=== PATIENT | female | born 1960 | race Two or more races ===

== ENCOUNTER 2023-07-05 05:30 | Day surgery (SDC) | payer OTHER ==
[2023-07-02 08:16] LABS: URINE APPEARANCE Clear; URINE BILIRRUBIN Negative (NEGATIVE); URINE BLOOD Negative; URINE COLOR Yellow; URINE GLUCOSE Negative (NEGATIVE); URINE LEUKOCYTE Negative; URINE NITRATE Negative; URINE PROTEIN Negative (NEGATIVE); URINE UROBILINOGEN 0.2 E.U./dl
[2023-07-02 08:17] LABS: URINE BACTERIA 76.7 uL (0.0-1933); URINE EPITHELIAL CELLS 7.8 uL (0.0-38.8); URINE RBC 4.5 uL (0.0-20.8); URINE WBC 22.9 uL (0.0-23.2)
[2023-07-02 09:00] LABS: HEMATOCRIT 41.7 % (36.0-45.00); HEMOGLOBIN 14.2 g/dL (12.0-15.00); MEAN CELL VOLUME 91.3 fL (80.00-100.00); PLATELET COUNT 305 K/uL (150-450); RED BLOOD COUNT 4.57 M/uL (4.00-6.00); RED CELL DISTRIBUTION WIDTH 13.6 % (11.5-14.5)
[2023-07-02 09:01] LABS: ALBUMIN 3.7 gm/dL (3.4-5.0); BILIRUBIN TOTAL 0.45 mg/dL (0.3-1.2); CREATININE SERUM 0.63 mg/dL (0.55-1.02); GFR 95.75; GLOBULINA 3.7 G/DL (2.4-3.5); POTASSIUM 3.58 mEq/L (3.5-5.1); TOTAL PROTEIN 7.4 gm/dL (6.4-8.2)
[2023-07-02 09:02] LABS: PARTIAL THROMBOPLASTIN TIME 28.1 SECONDS (22.0-34.0); PROTHROMBIN TIME 10.5 SECONDS (9.0-11.5)
[~2023-07-05] VITALS: Ht 170.2 cm; Wt 103.0 kg
[~2023-07-05 05:30] MED LIST: ALLEGRA ALLERG180 MG PO; CLONAZEPAM0.5 MG PO; CRESTOR5 MG PO; CYMBALTA30 MG PO; HORIZANT300 MG PO; HYZAAR 100-251 EACH PO; MELATONIN5 M1 PO; SINGULAIR10 MG PO; SYMBI IH; SYNTHROID50 MCG PO
[2023-07-05] MEDS ORDERED: MORGIDOX100 MG PO (08:42)
== END 2023-07-05 12:45 | disposition home or self-care (01) ==
LOC: CIR.AMB 05:30
PROVIDERS: ATTEND Obstetrics & Gynecology
DX: N84.0 Polyp of corpus uteri (principal); N95.0 Postmenopausal bleeding; N93.8 Other specified abnormal uterine and vaginal bleeding; Z20.822 Contact with and (suspected) exposure to COVID-19; Z88.6 Allergy status to analgesic agent; E03.9 Hypothyroidism, unspecified; I10 Essential (primary) hypertension; E11.9 Type 2 diabetes mellitus without complications

== ENCOUNTER 2023-11-15 07:15 | Inpatient (IN) | payer OTHER ==
[~2023-11-15] VITALS: Ht 170.2 cm; Wt 103.0 kg
[~2023-11-15 07:15] MED LIST changes: +MORGIDOX100 MG PO
[2023-11-15 08:40] LABS: HEMOGLOBIN 13.9 g/dL (12.0-15.00); MEAN CELL VOLUME 92.5 fL (80.00-100.00); MEAN CORPUSCULAR HEMOGLOBIN 32.2 pg (27.00-32.0); MEAN CORPUSCULAR HGB CONC 34.8 g/dl (32.0-36.0); PLATELET COUNT 338 K/uL (150-450); RED BLOOD COUNT 4.33 M/uL (4.00-6.00); RED CELL DISTRIBUTION WIDTH 12.9 % (11.5-14.5)
[2023-11-15 08:40] LABS: URINE APPEARANCE Clear; URINE BILIRRUBIN Negative (NEGATIVE); URINE BLOOD Negative; URINE COLOR Yellow; URINE GLUCOSE Negative (NEGATIVE); URINE LEUKOCYTE Negative; URINE NITRATE Negative; URINE PROTEIN Negative (NEGATIVE)
[2023-11-15 08:46] LABS: URINE EPITHELIAL CELLS 2.9 uL (0.0-38.8); URINE RBC 3.3 uL (0.0-20.8); URINE WBC 3.9 uL (0.0-23.2)
[2023-11-15 09:05] LABS: ALBUMIN 3.9 gm/dL (3.4-5.0); BILIRUBIN TOTAL 0.66 mg/dL (0.3-1.2); CALCIUM 9.4 mg/dL (8.5-10.1); CREATININE SERUM 0.6 mg/dL (0.55-1.02); GFR 100.97; GLOBULINA 3.6 G/DL (2.4-3.5); POTASSIUM 3.54 mEq/L (3.5-5.1); TOTAL PROTEIN 7.5 gm/dL (6.4-8.2)
[2023-11-15 09:06] LABS: PARTIAL THROMBOPLASTIN TIME 29.6 SECONDS (22.0-34.0); PROTHROMBIN TIME 10.5 SECONDS (9.0-11.5)
[2023-11-22] MEDS ORDERED: CEFOXITIN SODIUM 2,000 MG VIAL IV ONE ×2 (09:04→11:30)
[2023-11-22] MEDS ORDERED: METRONIDAZOLE/SODIUM CHLORIDE 500 MG/100 ML PIGGYBACK IV ONE ×2 (09:04→11:30)
[2023-11-22] MEDS ORDERED: POVIDONE-IODINE 118 ML BOTT TOP ONE (09:36)
[2023-11-22] MEDS ORDERED: BUDESONIDE-FO10.2 G1 (10:00)
[2023-11-22] MEDS ORDERED: FAMOTIDINE40 MG (10:00)
[2023-11-22] MEDS ORDERED: GABAPENTIN300 M2 (10:00)
[2023-11-22] MEDS ORDERED: CLOTRIMAZOLE-BE15 G1 (10:00)
[2023-11-22] MEDS ORDERED: hydrALAZINE HCL 20 MG VIAL ONE (11:01)
[2023-11-22] MEDS ORDERED: VISTASEAL DUAL APPICATOR 1 EACH APPL TOP ONE ×2 (11:41→12:00)
[2023-11-22] MEDS ORDERED: THROMBIN,HU/FIBRINOGEN/CALCIUM 10 ML SYRINGE TOP ONE (11:45)
[2023-11-22] MEDS ORDERED: hydrALAZINE HCL 20 MG VIAL IV ONE (12:00)
[2023-11-22] MEDS ORDERED: FAMOTIDINE/PF 20 MG/2 ML VIAL IV SCH (12:36)
[2023-11-22] MEDS ORDERED: RINGERS SOLUTION,LACTATED 1,000 ML IV SCH (12:45)
[2023-11-22] MEDS ORDERED: MEPERIDINE HCL/PF 50 MG/ML VIAL IM PRN (12:45)
[2023-11-22] MEDS ORDERED: PROMETHAZINE HCL 25 MG/ML AMPUL IM PRN (12:45)
[2023-11-22 14:46] LABS: ABG PH 7.442 (7.35-7.45); ABG PO2 260.4 mmHg (80-100); ABG pCO2 35.2 mmHg (35-45)
[2023-11-22 14:47] LABS: BASE EXCESS -0.1 mmol/l; BICARBONATE 23.4 mmol/l (23-25); SaO2 99.9 %; Tco2 24.5 mmol/l; allen test SATISFACTORY; puncture site RADIAL RIGHT
[2023-11-22 14:48] LABS: o2 40 %
[2023-11-22] MEDS ORDERED: MONTELUKAST SODIUM 10 MG TABLET PO SCH (17:00)
[2023-11-22] MEDS ORDERED: SIMETHICONE 125 MG CAPSULE PO ONE (17:01)
[2023-11-22] MEDS ORDERED: SIMETHICONE 125 MG CAPSULE PO SCH (18:00)
[2023-11-22 19:02] LABS: HEMATOCRIT 41.2 % (36.0-45.00); MEAN CELL VOLUME 91.4 fL (80.00-100.00); MEAN CORPUSCULAR HGB CONC 33.9 g/dl (32.0-36.0); PLATELET COUNT 326 K/uL (150-450); RED BLOOD COUNT 4.51 M/uL (4.00-6.00); RED CELL DISTRIBUTION WIDTH 13.5 % (11.5-14.5)
[2023-11-22] MEDS ORDERED: BENZONATATE 100 MG CAPSULE PO SCH (21:00)
[2023-11-22] MEDS ORDERED: LEVALBUTEROL HCL 0.63 MG/3 ML SOLUTION IH SCH (21:00)
[2023-11-22] MEDS ORDERED: MENTHOL/CETYLPYRD CL 1 LOZENGE MM SCH (21:00)
[2023-11-22] MEDS ORDERED: CLONAZEPAM 0.5 MG TABLET PO SCH (21:00)
[2023-11-23] MEDS ORDERED: LEVOTHYROXINE SODIUM 50 MCG TABLET PO SCH (06:00)
[2023-11-23] MEDS ORDERED: LOSARTAN/HYDROCHLOROTHIAZIDE 1 UDTAB TABLET PO SCH (09:00)
[2023-11-23] MEDS ORDERED: Duloxetine HCl 30 MG CAPSULE.DR PO SCH (09:00)
[2023-11-23] MEDS ORDERED: GABAPENTIN 300 MG CAPSULE PO SCH (09:00)
[2023-11-23] MEDS ORDERED: FAMOtidine 20 MG TABLET PO SCH (09:13)
[2023-11-23] MEDS ORDERED: ACETAMINOPHEN WITH CODEINE 1 UDTAB TABLET PO PRN (09:15)
[2023-11-23] MEDS ORDERED: ACETAMINOPHEN-1 EAC2 PO (09:25)
[2023-11-23] MEDS ORDERED: PEPCID AC20 MG PO (09:26)
[2023-11-23] MEDS ORDERED: MELATONIN 5 MG TABLET PO SCH (21:00)
== END 2023-11-23 10:04 | disposition home or self-care (01) | DRG 743 ==
LOC: O/R 11-22 05:05 → OB/GYN 11-22 05:05 → SURG 11-22 07:00 → OB/GYN 11-22 13:17
PROVIDERS: Anesthesiology; Obstetrics & Gynecology Gynecologic Oncology; ADMIT Obstetrics & Gynecology; ATTEND Obstetrics & Gynecology
PROC: 0UT2FZZ Resection of Bilateral Ovaries, Via Natural or Artificial Opening With Percutaneous Endoscopic Assistance (ICD-10-PCS; 2023-11-22)
PROC: 0TJB8ZZ Inspection of Bladder, Via Natural or Artificial Opening Endoscopic (ICD-10-PCS; 2023-11-22)
PROC: 07BC4ZZ Excision of Pelvis Lymphatic, Percutaneous Endoscopic Approach (ICD-10-PCS; 2023-11-22)
PROC: 0UT9FZZ Resection of Uterus, Via Natural or Artificial Opening With Percutaneous Endoscopic Assistance (ICD-10-PCS; principal; 2023-11-22 07:00)
PROC: 0UT7FZZ Resection of Bilateral Fallopian Tubes, Via Natural or Artificial Opening With Percutaneous Endoscopic Assistance (ICD-10-PCS; 2023-11-22 07:00)
DX: D25.1 Intramural leiomyoma of uterus (principal); N80.03 Adenomyosis of the uterus; N95.0 Postmenopausal bleeding; Z20.822 Contact with and (suspected) exposure to COVID-19